=== PATIENT | male | born 2000 | race Caucasian/White ===

== ENCOUNTER 2022-04-16 16:12 | Outpatient (CLI) | payer OTHER, SELFPAY ==
[2022-04-16 20:14] LABS: Thyroid Stimulating Hormone* 0.829 uIU/mL (0.270-4.20)
== END 2022-04-16 16:13 | disposition home or self-care (01) ==
LOC: LKVREF 16:13
PROVIDERS: PCP Family Medicine; Visit Provider Family Medicine
DX: L43.9 Lichen planus, unspecified (principal)
CPT/HCPCS: 84443

== ENCOUNTER 2023-06-11 08:45 | Outpatient (CLI) | payer OTHER, SELFPAY | END 2023-06-11 08:46 | disposition home or self-care (01) | PROVIDERS: PCP Family Medicine; Visit Provider Family Medicine | DX: Z00.00 Encounter for general adult medical examination without abnormal findings (principal); R35.0 Frequency of micturition; Z13.6 Encounter for screening for cardiovascular disorders | CPT/HCPCS: 80048; 80061 ==